=== PATIENT | female | born 1990 | race Caucasian/White ===

== ENCOUNTER 2018-06-22 08:00 | Inpatient (IN) ==
[2018-06-22] MEDS ORDERED: *HR* Nalbuphine 10 MG/ML AMPUL IVP PRN (08:23)
[2018-06-22] MEDS ORDERED: Famotidine 20 MG/2 ML VIAL IVP PRN (08:23)
[2018-06-22] MEDS ORDERED: Ondansetron 4 MG/2 ML VIAL IVP PRN (08:23)
[2018-06-22] MEDS ORDERED: Metoclopramide 10 MG/2 ML VIAL IVP PRN (08:23)
[2018-06-22] MEDS ORDERED: Ringers Solution, Lactated 1,000 ML IVC SCH (08:30)
[2018-06-22 09:16] LABS: Basophils % 0.2 %; Eosinophils # 0.1 K/mcL (0.0-0.6); Eosinophils % 0.5 %; Hematocrit 34.4 % (35.3-44.9); Hemoglobin 11.5 g/dL (11.5-15.4); Immature Granulocytes % 0.3 % (0-4); Lymphocytes # 1.6 K/mcL (0.6-4.6); Lymphocytes % 16.9 %; Mean Corpuscular HGB Conc 33.4 g/dL (31.6-35.5); Mean Corpuscular Hemoglobin 30.2 pg (28.0-33.3); Mean Corpuscular Volume 90.3 fL (83.0-100.0); Mean Platelet Volume 10.4 fL (9.4-12.4); Monocytes # 0.4 K/mcL (0.0-1.3); Monocytes % 3.6 %; Neutrophils # 7.6 K/mcL (1.6-8.9); Platelet Count 211 K/mcL (140-400); Red Blood Count 3.81 M/mcL (3.82-4.97); Red Cell Distribution Width 13.2 % (11.5-14.5); Segmented Neutrophils % 78.5 %
[2018-06-22] MEDS ORDERED: Penicillin G Potassium 5,000,000 UNIT in 0.9 % Sodium Chloride Mini Bag 100 ML IVPB ONE (09:17)
[2018-06-22] MEDS ORDERED: Oxytocin 20 units/ LR 1000 mL 20 UNIT/1,000 ML BAG IVC SCH ×2 (09:30→18:44)
[2018-06-22 09:45] LABS: Amphetamine Screen,Urine Negative ng/mL (Cutoff=1000); Barbiturate Screen,Urine Negative ng/mL (Cutoff=200); Benzodiazepines Screen,Urine Negative ng/mL (Cutoff=200); Cannabinoid Screen,Urine Negative ng/mL (Cutoff = 50); Cocaine Screen,Urine Negative ng/mL (Cutoff= 300); Opiate Screen,Urine Negative ng/mL (Cutoff=300); Phencyclidine Screen,Urine Negative ng/mL (Cutoff=25)
[2018-06-22] MEDS ORDERED: *HR* Ropivacaine/PF 0.2% 20 ML VIAL EP ONE (09:55)
[2018-06-22] MEDS ORDERED: *HR* FentaNYL (PF) 100 MCG/2 ML VIAL EP ONE (09:55)
--- NOTE | 2018-06-22 09:55 | Anesthesia Evaluation PreOp ---
Date of Encounter: 06/22/18 Time of Encounter: 09:52 - Past History Planned Operation: RAGHU Cardiac History: Denies any Significant Hx Pulmonary History: Denies Any Significant HX HAND BRAILLE TRANSCRIBER History: Denies Any Significant HX Other Medical History: GERD Anesthesia History: No Prior Anesthetic Complications : Yes Test: Positive Alcohol Use: none Drug use: none Medications and Allergies Vitamin Tablet 1 tab PO DAILY 06/22/18 [History] Allergy/AdvReac Type Severity Reaction Status Date / Time No Known Allergies Allergy Verified 06/22/18 08:42 - Meds/Allergy Pre-op Review Medications Reviewed: Yes Allergies Reviewed: Yes Beta Blockers on Current Med List: No Anesthesia Results - Labs 06/22/18 08:54 Anesthesia Exam 110/78 88 fht 132 Height: 5'4" Weight: 118 k NPO (# of Hours): 2 Pain Scale: 2 Pain Scale Used: Numeric (1 - 10) - HEENT Pupil (Motor): Pupils equal Mallampati: II Teeth: Normal Oral Opening: Greater than 3 - HAND BRAILLE TRANSCRIBER LOC: Oriented HAND BRAILLE TRANSCRIBER Motor: Normal RUE, Normal LUE, Normal RLE, Normal LLE, Normal Face HAND BRAILLE TRANSCRIBER Sensory: Normal: RUE, LUE, RLE, LLE, Face - Cardiac Rhythm: Regular Murmur: None - Pulmonary Breath Sounds: bilateral Clear Respiratory Effort: Symmetrical Anesthesia Assess/Plan ASA Score: 2 Level of consciousness: Cooperative Anesthetic Plan: Epidural (risks discussed, questions answered, consented) Autologous Blood: No Monitoring Plan: Standard Monitors Recovery Plan: Other
[2018-06-22] MEDS ORDERED: Epidural Premix (fent/bupiv) 110 ML EP SCH (10:00)
[2018-06-22] MEDS ORDERED: *HR* FentaNYL (PF) 100 MCG/2 ML VIAL ONE (11:03)
[2018-06-22] MEDS ORDERED: *HR* Ropivacaine/PF 0.2% 20 ML VIAL ONE (11:03)
[2018-06-22] MEDS ORDERED: Lidocaine -MPF 2% 5 ML VIAL ONE (11:03)
[2018-06-22] MEDS ORDERED: Penicillin G Potassium 2,500,000 UNIT in 0.9 % Sodium Chloride 100 ML IVPB SCH (13:00)
--- NOTE | 2018-06-22 13:14 | Anesthesia Procedures ---
Addendum entered and electronically signed by Rylan Giraldo CRNA 06/22/18 17:50: Infant Delivery Date: 06/22/18 Delivery Time: 16:55 Original Note: Date of Encounter: 06/22/18 Time of Encounter: 13:12 Procedures: Anesthesia - Epidural/Spinal Patient ID/Chart reviewed: Yes Patient examined: Yes OB Eval: Gestational age: 40 OB Eval: : 1 OB Eval: Hx Para: 0 OB Eval: Dilated at (cm): 4 OB Eval: Contractions: Non-stressed pattern Consent Obtained: Yes Supplemental Oxygen: None/Room Air Site Prep: Aseptic Technique, Sterile prep and drape, 0.5% Chlorhexidine/Alcohol Patient position: upright Local Anesthetic: Lidocaine 1% Amount of Local Anesthetic used: 3 Touhy Needle Gauge: 18 Touhy Needle Depth (cm): 9 Catheter Depth at Skin (cm): 20 Test Dose Result: Negative Loading Dose: Fentanyl (mcg): 100 Loading Dose: Other: rop 0.2% 10cc Loading Dose Administered: Thru Touhy Needle Infusion Med: 0.125% Bupivacaine w/ 2 mcg/ml Fentanyl Infusion Rate (mls/hr): 15 (pcea 5cc q30") Catheter Secured in Place: Tegaderm Interspace Used: L3-L4 Loss of Resistance (AURA): Yes Blood: No CSF: No Paresthesia: No Procedure: aseptic, angela well, VSS effective Vitals + FHT's: 120/89 88 16 fht 132
--- NOTE | 2018-06-22 16:15 | OB/GYN History & Physical ---
Date of Encounter: 06/22/18 Time of Encounter: 09:00 Assessment and Plan (1) 40 weeks gestation of Current visit: Yes Status: Acute (2) Intrauterine Current visit: Yes Status: Acute (3) Intact amniotic membranes during in third trimester Current visit: Yes Status: Acute (4) Type A blood, Rh positive Current visit: Yes Status: Acute (5) NST (non-stress test) reactive Current visit: Yes Status: Acute (6) Encounter for induction of labor Current visit: Yes Status: Acute Admit to L&D for induction of labor Start Pitocin and increase per protocol to contraction pattern every 2-3 minutes Labs-CBC and clot to hold Continuous electronic monitoring Pain management plan is epidural-may have upon request Anticipate Dr. Don is the OB on-call and is available as needed (7) GBS (group B Streptococcus carrier), +RV culture, currently Current visit: Yes Status: Acute Penicillin per protocol History of Present Illness Chief complaint: IOL HPI: Ms. Loomis is a 27 year old female at 40 weeks 0 days gestation with an estimated date of of 06/22/18 dated by early ultrasound. She presents for induction of labor secondary to obesity along with weight loss during the . She endorses good movement and reports few contractions. She denies leakage of fluid and vaginal bleeding. Her has been complicated only by a her weight. She has been followed by the midwives throughout her . records are available electronically and have been reviewed. Labs: A+ GBS+ Hep B- HIV- T. Palladium- GC/GL Rubella immune Varicella immune Past Med Surg Social Fam HX - Past Medical History Medical history: no medical history Psychiatric history: no psych history - Past Surgical History Surgical History: other Additional surgical history: pilonidal cyst - Social History Smoking Status: Never smoker Smokeless Tobacco Status: No Alcohol use: none Drug use: none - Family History Mother Living Status: Still Living Hx Family Cardiac Disorders: Yes Obstetrical History - Pregnancies : 1 Para: 0 Term: 0 : 0 Ab's: 0 Livin Medications and Allergies Vitamin Tablet 1 tab PO DAILY 06/22/18 [History] Allergy/AdvReac Type Severity Reaction Status Date / Time No Known Allergies Allergy Verified 06/22/18 08:42 Review of System OB All systems PM: reviewed and no additional remarkable complaints except as stated Exam - Constitutional Constitutional: well developed, well nourished, mild distress, morbidly obese - HEENT HEENT: PERRL, Normocephaly, Mucus Membranes Moist - Neck Neck exam: full ROM - Lungs Respiratory exam: CTAB - Cardiovascular Cardiovascular exam: RRR, +S1, +S2 - Breasts Breast: bilateral: normal - Abdomen Abdomen: Present: bowel sounds normal, gravid, non tender - Extremities Extremities exam: full ROM, normal capillary refill, normal inspection, radial pulses palpable and symmetrical - Vulva Vulva: bilateral: normal - Vagina Vagina: Present: normal moisture - Cervix Dilation: 3 (per rn) Effacement: 80 Station: -2 - Uterus Uterus exam: Present: normal size, normal contour - Adnexa Adnexa: bilateral: normal - Anus/Rectum Anus/Rectum: Present: normal perianal skin Results Result Diagrams: 06/22/18 08:54 Abnormal lab results RBC 3.81 M/mcL (3.82-4.97) L 06/22/18 08:54 Hct 34.4 % (35.3-44.9) L 06/22/18 08:54 All other labs normal. - VTE Reasons for not Prescribing Prophylaxis: Treatment not Indicated - Low risk for VTE
--- NOTE | 2018-06-22 16:22 | OB Labor Progress Note ---
Date of Encounter: 06/22/18 Time of Encounter: 14:15 Labor Progress Note - Subjective Subjective: Patient comfortable with epidural - Cervix Cervix: 9.5/100/+1 - Heart Tones Heart Tones: Baseline 120 Moderate variability Accelerations present 15 x 15 No decelerations heart rate category I - Pinckard Pinckard: Contractions every 2 minutes and palpate strong - Interventions Interventions: ROSETTE Stephens sit - Plan Physician notified: No Plan: Continue induction management Position changes to lower station and completion of cervix dilation Anticipate
--- NOTE | 2018-06-22 17:40 | OB/GYN Procedure Note ---
Delivery - Delivery Date: 06/22/18 Provider: Lashon Velez Intrapartum events: none Delivery induction: oxytocin Delivery monitor: external FHT, external uterine Anesthesia: epidural Quantitated Blood Loss: 300 - (s) Infant A Infant Delivery Date: 06/22/18 Infant Delivery Time: 16:55 Presentation: vertex Position: HEYDI Route of delivery: Gender: Female Viability: Viable Pounds: 6 Ounces: 8 Weight Gram: 2.94 kg at 1 minute: 8 at 5 mins: 9 Shoulder Dystocia: not encountered Specimens collected: cord blood Placenta: spontaneous Cord: nuchal cord (x2), 3 umbilical vessels, delivered through nuchal - Repair Episiotomy: none Laceration Description: Vaginal (right - repaired with 3-0 vicryl), Labial (bilateral - hemostatic) - Complications Delivery complications: none Delivery comments: This is a 27 year old G 1 now P 1001 who was admitted for induction of labor secondary to obesity and weight loss during . She progressed with Pitocin induction to the second stage of labor. She pushed for about an hour. She delivered a viable, female , HEYDI Lopez" over an intact perineum with bilateral labial lacerations and a right vaginal laceration. A nuchal cord was identified. The was delivered through the nuchal which was found to be wrapped around the neck twice. A shoulder dystocia was not encountered. The was placed on the maternal abdomen and allowed to transition spontaneously. The cord was double clamped by arc cutter after pulsations ceased and cut by FOB. scores were 8 at 1 minute and 9 at 5 minutes. The weighed 6 lbs. 8 oz. (2940 g). The placented delivered spontaneously, intact (Dick) with a 3-vessel cord. Inspection revealed bilateral labial lacerations which were hemostatic and a right vaginal laceration which was repaired with a 3-0 Monocryl suture.. The uterus was firm with no active bleeding. EBL was 300 mL. Placenta and umbilical artery blood gases were not sent. There were no complications during the procedure. Mom and baby are skin to skin following delivery. The infant was found to be hypothermic at 97.1 degrees Fahrenheit and thus was taken to the warmer prior to the first are skin to skin being compl eted. - Disposition Mom disposition: stable in LDR disposition: stable in LDR
[2018-06-22] MEDS ORDERED: Ibuprofen 600 MG TABLET PO PRN (18:44)
[2018-06-22] MEDS ORDERED: Acetaminophen 325 MG TABLET PO PRN (18:44)
[2018-06-22] MEDS ORDERED: Sennosides 8.6 MG TABLET PO PRN (18:44)
[2018-06-22] MEDS ORDERED: Benzocaine/Menthol 56 GM AEROSOL SPRAY TP PRN (18:44)
[2018-06-23 05:28] LABS: Basophils % 0.3 %; Eosinophils # 0.1 K/mcL (0.0-0.6); Eosinophils % 0.7 %; Hematocrit 31.2 % (35.3-44.9); Hemoglobin 10.4 g/dL (11.5-15.4); Immature Granulocytes % 0.3 % (0-4); Lymphocytes # 1.7 K/mcL (0.6-4.6); Lymphocytes % 18.6 %; Mean Corpuscular HGB Conc 33.3 g/dL (31.6-35.5); Mean Corpuscular Hemoglobin 30.3 pg (28.0-33.3); Mean Platelet Volume 10.7 fL (9.4-12.4); Monocytes # 0.5 K/mcL (0.0-1.3); Monocytes % 4.9 %; Neutrophils # 6.9 K/mcL (1.6-8.9); Platelet Count 208 K/mcL (140-400); Red Blood Count 3.43 M/mcL (3.82-4.97); Segmented Neutrophils % 75.2 %
[2018-06-23] MEDS ORDERED: Prenatal Vit/FA 1 EACH TABLET PO SCH (09:00)
--- NOTE | 2018-06-23 09:35 | Discharge Summary ---
Date of Encounter: 06/23/18 Time of Encounter: 09:32 - Discharge Diagnosis (1) Vaginal delivery Priority: Primary Status: Acute Comments: Pt meeting all milestones and desires discharge home today. (2) Patient is a currently breast-feeding mother Priority: Secondary Status: Acute Comments: well established, breastpump rx given - Discharge Medications Prescriptions: New Breast Pump [BREAST PUMP] 1 each .ROUTE AD #1 each Ibuprofen [Motrin] 600 mg PO Q6HR PRN #30 tablet PRN Reason: Cramping Benzocaine/Menthol Delanson [Dermoplast Delanson] 1 appl TP QID PRN aerosol PRN Reason: See Comments Docusate [Colace] 100 mg PO BID #60 capsule Continue Vitamin Tablet 1 tab PO DAILY Home Medications: Vitamin Tablet 1 tab PO DAILY 06/22/18 [History] Benzocaine/Menthol Delanson [Dermoplast Delanson] 1 appl TP QID PRN aerosol 06/23/18 [Rx] Breast Pump [BREAST PUMP] 1 each .ROUTE AD #1 each 06/23/18 [Rx] Docusate [Colace] 100 mg PO BID #60 capsule 06/23/18 [Rx] Ibuprofen [Motrin] 600 mg PO Q6HR PRN #30 tablet 06/23/18 [Rx] Allergies/Adverse Reactions: Allergy/AdvReac Type Severity Reaction Status Date / Time No Known Allergies Allergy Verified 06/22/18 08:42 Data Procedures and tests throughout hospitalization: Laboratory Tests 06/22/18 06/22/18 06/23/18 08:54 08:54 04:52 WBC 9.6 9.2 RBC 3.81 L 3.43 L Hgb 11.5 10.4 L Hct 34.4 L 31.2 L MCV 90.3 91.0 MCH 30.2 30.3 MCHC 33.4 33.3 RDW 13.2 13.0 Plt Count 211 208 MPV 10.4 10.7 Immature Gran % 0.3 0.3 Seg Neutrophils % 78.5 75.2 Lymphocytes % 16.9 18.6 Monocytes % 3.6 4.9 Eosinophils % 0.5 0.7 Basophils % 0.2 0.3 Neutrophils # 7.6 6.9 Lymphocytes # 1.6 1.7 Monocytes # 0.4 0.5 Eosinophils # 0.1 0.1 Basophils # 0.0 0.0 Urine Opiates Screen Negative Ur Barbiturates Screen Negative Ur Phencyclidine Scrn Negative Ur Amphetamines Screen Negative U Benzodiazepines Scrn Negative Urine Cocaine Screen Negative U Marijuana (THC) Screen Negative Ur Drug Screen Interp See Below Labs on day of discharge: Labs from last 24 hours 06/23/18 06/22/18 04:52 08:54 WBC 9.2 RBC 3.43 L Hgb 10.4 L Hct 31.2 L MCV 91.0 MCH 30.3 MCHC 33.3 RDW 13.0 Plt Count 208 MPV 10.7 Immature Gran % 0.3 Seg Neutrophils % 75.2 Lymphocytes % 18.6 Monocytes % 4.9 Eosinophils % 0.7 Basophils % 0.3 Neutrophils # 6.9 Lymphocytes # 1.7 Monocytes # 0.5 Eosinophils # 0.1 Basophils # 0.0 Urine Opiates Screen Negative Ur Barbiturates Screen Negative Ur Phencyclidine Scrn Negative Ur Amphetamines Screen Negative U Benzodiazepines Scrn Negative Urine Cocaine Screen Negative U Marijuana (THC) Screen Negative Date of admission: 06/22/18 08:04 Primary care physician: Mary Ramirez DO Consults: 06/22/18 18:44 Consult to Hotel Service Supervisor [CONS] Routine Comment: Vaginal delivery, consult needed Discharging clinician: Bella Mathias Anticipated date of discharge: 06/23/18 - Patient Status Disposition: Home, Self-Care Condition: Good Functional capacity at discharge: independent ambulation Overall status at discharge: patient is progressing back to baseline - Discharge Instructions Follow Up With: Mary Ramirez DO [Primary Care Provider] - Lashon Velez [Advanced Practice Nurse] - - Diet and Activity Activity: increase activity as tolerated Diet: regular diet Hospital Course Reason for admission: induction of labor Delivery: Episiotomy: none Laceration: other Other procedures: none complications: none Discharge diagnosis: IUP at term delivered baby: female Hospital course: - Delivery Date: 06/22/18 Provider: Lashon Velez Intrapartum events: none Delivery induction: oxytocin Delivery monitor: external FHT, external uterine Anesthesia: epidural Quantitated Blood Loss: 300 - Infant (s) Infant A Delivery Date: 06/22/18 Delivery Time: 16:55 Presentation: vertex Position: HEYDI Route of delivery: Gender: Female Viability: Viable Pounds: 6 Ounces: 8 Weight Gram: 2.94 kg at 1 minute: 8 at 5 mins: 9 Shoulder Dystocia: not encountered Specimens collected: cord blood Placenta: spontaneous Cord: nuchal cord (x2), 3 umbilical vessels, delivered through nuchal - Repair Episiotomy: none Laceration Description: Vaginal (right - repaired with 3-0 vicryl), Labial (bilateral - hemostatic) - Complications Delivery complications: none - Disposition Mom disposition: home PPD1 disposition: home with mother, Time Attestation: Total time spent providing and/or coordinating discharge services: Time Spent: Less than 30 minutes Exam - Constitutional Vitals: Temp Pulse Resp BP Pulse Ox 98.1 F 75 16 108/64 99 06/23/18 08:02 06/23/18 08:02 06/23/18 08:02 06/23/18 08:02 06/23/18 08:02 General appearance IM: A&O X 3 - Respiratory Respiratory exam: Present: CTAB - Cardiovascular Cardiovascular exam IM: Present: RRR - GI/Abdominal GI/Abdominal exam IM: soft, no peritoneal signs - Uterine Tone: Firm Uterus Position: 1 Finger Below Umbilicus - Extremities Exam Extremities exam IM: Present: pedal edema (mild bilaterally) - Neurological Exam Neurological exam: normal gait, oriented X3 - Psychiatric Additional comments: reports good mood, declines contraception, safe spacing discussed.
[2018-06-23 17:08] VITALS: BP 117/76
== END 2018-06-23 17:50 | disposition home or self-care (01) | DRG 560 ==
LOC: 1NENULAB 08:04 → 1NENUOBS 18:42
PROVIDERS: ADMIT Advanced Practice Midwife; ATTEND Advanced Practice Midwife

== ENCOUNTER 2021-12-03 08:15 | Inpatient (IN) ==
[2021-12-03] MEDS ORDERED: Penicillin G Potassium 5,000,000 UNIT in 0.9 % Sodium Chloride Mini Bag 100 ML IVPB ONE (08:32)
[2021-12-03] MEDS ORDERED: Naloxone 0.4 MG/ML INJ IVP PRN (08:32)
[2021-12-03] MEDS ORDERED: Metoclopramide 10 MG/2 ML VIAL IVP PRN (08:32)
[2021-12-03] MEDS ORDERED: Famotidine 20 MG/2 ML VIAL IVP PRN (08:32)
[2021-12-03] MEDS ORDERED: Azithromycin 500 MG in 0.9 % Sodium Chloride 250 ML IVPB PRN (08:32)
[2021-12-03] MEDS ORDERED: *HR* Nalbuphine 10 MG/ML AMPUL IV PRN (08:32)
[2021-12-03] MEDS ORDERED: Ringers Solution, Lactated 1,000 ML IVC SCH (08:45)
[2021-12-03] MEDS ORDERED: Oxytocin 30 UNIT/503 ML BAG IVC SCH (08:45)
[2021-12-03] MEDS ORDERED: EPHEDrine sulfate 50 MG/10 ML VIAL IVP PRN (09:51)
[2021-12-03] MEDS ORDERED: Epidural Premix (fent/bupiv) 110 ML EP SCH (10:00)
[2021-12-03 10:18] LABS: Basophils % 0.3 %; Eosinophils # 0.1 K/mcL (0.0-0.6); Eosinophils % 0.9 %; Hematocrit 32.6 % (35.3-44.9); Immature Granulocytes % 0.6 % (0-4); Lymphocytes # 1.4 K/mcL (0.6-4.6); Lymphocytes % 16.5 %; Mean Corpuscular HGB Conc 33.7 g/dL (31.6-35.5); Mean Corpuscular Volume 88.8 fL (83.0-100.0); Mean Platelet Volume 10.5 fL (9.4-12.4); Monocytes # 0.4 K/mcL (0.0-1.3); Monocytes % 4.5 %; Neutrophils # 6.6 K/mcL (1.6-8.9); Platelet Count 220 K/mcL (140-400); Red Blood Count 3.67 M/mcL (3.82-4.97); Red Cell Distribution Width 12.8 % (11.5-14.5); Segmented Neutrophils % 77.2 %; White Blood Count 8.6 K/mcL (4.3-11.1)
[2021-12-03 10:39] LABS: Amphetamine Screen,Urine Negative ng/mL (Cutoff=1000); Barbiturate Screen,Urine Negative ng/mL (Cutoff=200); Benzodiazepines Screen,Urine Negative ng/mL (Cutoff=200); Cannabinoid Screen,Urine Negative ng/mL (Cutoff = 50); Cocaine Screen,Urine Negative ng/mL (Cutoff= 300); Opiate Screen,Urine Negative ng/mL (Cutoff=300); Phencyclidine Screen,Urine Negative ng/mL (Cutoff=25)
[2021-12-03] MEDS: Penicillin G Potassium 2,500,000 UNIT/105 ML MLS IVPB SCH ×2 (14:43→18:42)
[2021-12-03] MEDS ORDERED: Ropivacaine/PF 0.2% 20 ML VIAL ONE (18:49)
[2021-12-04] MEDS ORDERED: Lanolin 7 G OINT...G. TP PRN (02:19)
[2021-12-04] MEDS ORDERED: Benzocaine/Menthol 56 GM AEROSOL SPRAY TP PRN (02:19)
[2021-12-04] MEDS ORDERED: Oxytocin 30 UNIT/503 ML BAG IVC SCH (02:19)
[2021-12-04] MEDS ORDERED: Ondansetron ODT 4 MG TAB.RAPDIS SL PRN (02:19)
[2021-12-04] MEDS: Ibuprofen 600 MG TABLET PO SCH ×3 (02:40→20:27)
[2021-12-04] MEDS: Acetaminophen 325 MG TABLET PO SCH ×3 (02:41→20:28)
[2021-12-04 07:33] VITALS: BP 107/66; TEMP 97.7; O2SAT 99
[2021-12-04] MEDS ORDERED: Prenatal Vit/FA 1 EACH TABLET PO SCH (09:00)
[2021-12-04 16:43] VITALS: PULSE 69
== END 2021-12-04 23:14 | disposition home or self-care (01) | DRG 560 ==
LOC: 1NENULAB 08:15 → 1NENUOBS 12-04 01:50
PROVIDERS: ADMIT Registered Nurse; ATTEND Registered Nurse